=== PATIENT | male | born 1980 | race Two or more races ===

== ENCOUNTER 2021-10-10 22:53 | Inpatient (IN) | payer OTHER ==
[2021-10-10 23:08] VITALS: BMI 26.7
[2021-10-10] MEDS ORDERED: BISMUTH SUBSALICYLATE 524 MG/30 ML PO PRN (23:25)
[2021-10-10] MEDS ORDERED: MAG HYDROX/AL HYDROX/SIMETH 30 ML UNIT-DOSE CUP PO PRN (23:25)
[2021-10-10] MEDS ORDERED: guaiFENesin 200 MG/10 ML 10 ML UNIT-DOSE CUPS PO PRN (23:25)
[2021-10-10] MEDS ORDERED: LOPERAMIDE HCL 2 MG CAPSULE PO PRN (23:25)
[2021-10-10] MEDS ORDERED: NALOXONE HCL 0.4 MG/ML VIAL IM PRN (23:25)
[2021-10-10] MEDS ORDERED: ACETAMINOPHEN 325 MG TABLET (FP) PO PRN ×2 (23:25)
[2021-10-10] MEDS ORDERED: P-EPHED 60MG/TRIPROLIDI 2.5MG TABLET PO PRN (23:25)
[2021-10-10] MEDS ORDERED: METHOCARBAMOL 500 MG TABLET PO PRN (23:25)
[2021-10-10] MEDS ORDERED: cloNIDine HCL 0.1 MG TABLET PO PRN (23:25)
[2021-10-10] MEDS ORDERED: MAGNESIUM CITRATE 300 ML BOTTLE PO PRN (23:25)
[2021-10-10] MEDS ORDERED: methaDONE HCL 10 MG TABLET (FOR DETOX USE ONLY) PO ONE (23:25)
[2021-10-10] MEDS ORDERED: MENTHOL/PHENOL 1 EACH UD MM PRN (23:25)
[2021-10-10] MEDS ORDERED: DICYCLOMINE HCL 10 MG CAPSULE PO PRN (23:25)
[2021-10-10] MEDS ORDERED: MAGNESIUM HYDROX 2400MG/30ML ORAL SUSPENSION 30 ML CUP PO PRN (23:25)
[2021-10-10] MEDS ORDERED: IBUPROFEN 400 MG TABLET (FP) PO PRN (23:25)
[2021-10-10] MEDS ORDERED: PROCHLORPERAZINE MALEATE 5 MG TABLET PO PRN (23:25)
[2021-10-11] MEDS ORDERED: methaDONE HCL 10 MG TABLET (FOR DETOX USE ONLY) PO ONE (10:00)
[2021-10-11] MEDS: PRENATAL VITAMINS W/ FOLIC ACID TABLET (FP) PO SCH (10:23)
[2021-10-11 14:43] LABS: HEMATOCRIT 40.6 % (35.4-49); HEMOGLOBIN 13.1 GM/dL (11.7-16.9); MCH 27.4 pg (25.7-33.7); MCHC 32.4 g/dl (32.0-35.9); MEAN CELL VOLUME 84.6 fl (80-96); MEAN PLT VOLUME 8.8 fl (7.5-11.1); PLATELET COUNT 206 10^3/uL (134-434); RDW 15.7 % (11.9-15.9); WHITE BLOOD COUNT 6.8 K/mm3 (4.0-10.0)
[2021-10-11 15:00] LABS: ALBUMIN 3.2 g/dl (3.4-5.0); BLOOD UREA NITROGEN 13.4 mg/dL (7-18); CALCIUM 8.8 mg/dL (8.5-10.1)
[2021-10-11 15:03] LABS: CREATININE 0.9 mg/dL (0.55-1.3)
[2021-10-11 15:04] LABS: BILIRUBIN,TOTAL 0.6 mg/dL (0.2-1)
[2021-10-11 15:05] LABS: TOT PROT 6.4 g/dl (6.4-8.2)
[2021-10-11] MEDS: ONDANSETRON *ODT* 4 MG TABLET SL ONE (21:01)
[2021-10-11] MEDS: clonazePAM 0.5 MG ODT TABLETS SL PRN (21:29)
[2021-10-11] MEDS: THIAMINE HCL 100 MG TABLET (FP) PO SCH (21:29)
[2021-10-11] MEDS: MELATONIN 5 MG TABLETS PO SCH (21:29)
[2021-10-12] MEDS ORDERED: methaDONE HCL 10 MG TABLET (FOR DETOX USE ONLY) PO ONE (10:00)
[2021-10-12] MEDS ORDERED: ONDANSETRON *ODT* 4 MG TABLET SL ONE (10:26)
[2021-10-12] MEDS ORDERED: TRIMETHOBENZAMIDE HCL 200MG/2ML INJ IM ONE (10:26)
[2021-10-12] MEDS ORDERED: DICYCLOMINE HCL 10 MG CAPSULE PO ONE (10:27)
[2021-10-12] MEDS: PRENATAL VITAMINS W/ FOLIC ACID TABLET (FP) PO SCH (11:50)
[2021-10-12] MEDS ORDERED: SUCRALFATE 1 GM TABLET (FP) PO ONE (14:00)
[2021-10-12 16:09] LABS: SARS-CoV-2 NAA Not Detected (Not Detected)
[2021-10-12] MEDS: MELATONIN 5 MG TABLETS PO SCH (22:11)
[2021-10-12] MEDS: THIAMINE HCL 100 MG TABLET (FP) PO SCH (22:11)
[2021-10-12] MEDS: clonazePAM 0.5 MG ODT TABLETS SL PRN (22:11)
[2021-10-13] MEDS ORDERED: methaDONE HCL 10 MG TABLET (FOR DETOX USE ONLY) ONE (09:37)
[2021-10-13 09:39] VITALS: BP 126/94; PULSE 77; TEMP 97.8
[2021-10-13] MEDS: PRENATAL VITAMINS W/ FOLIC ACID TABLET (FP) PO SCH (10:12)
[2021-10-13] MEDS ORDERED: NALOXONE (NARCAN) HCL 4 MG/0.1 ML SPRAY NS ONE (13:07)
[2021-10-14] MEDS ORDERED: methaDONE HCL 10 MG TABLET (FOR DETOX USE ONLY) PO ONE (10:00)
== END 2021-10-13 13:00 | disposition left against medical advice (07) | DRG 770 ==
LOC: YASAS 22:53 → Y6N 23:37
PROVIDERS: ADMIT Allergy & Immunology; ATTEND Allergy & Immunology
PROC: HZ2ZZZZ Detoxification Services for Substance Abuse Treatment (ICD-10-PCS; principal; 2021-10-10)
DX: F11.23 Opioid dependence with withdrawal (principal); F19.24 Other psychoactive substance dependence with psychoactive substance-induced mood disorder; Z59.00 Homelessness unspecified
CPT/HCPCS: 36415; 80053; 85027; 86780; 93005; 93010; C9803-CS; J0735; Q0162; U0003; U0005

== ENCOUNTER 2022-01-17 12:41 | Inpatient (IN) | payer OTHER ==
[2022-01-17 14:44] VITALS: BMI 25.8
[2022-01-17] MEDS ORDERED: MAGNESIUM CITRATE 300 ML BOTTLE PO PRN (16:00)
[2022-01-17] MEDS ORDERED: LOPERAMIDE HCL 2 MG CAPSULE PO PRN (16:00)
[2022-01-17] MEDS ORDERED: BENZOCAINE/MENTHOL (CHLORASEPTIC ) LOZENGE MM PRN (16:00)
[2022-01-17] MEDS ORDERED: BISMUTH SUBSALICYLATE 524 MG/30 ML PO PRN (16:00)
[2022-01-17] MEDS ORDERED: IBUPROFEN 600 MG TABLET (FP) PO PRN (16:00)
[2022-01-17] MEDS ORDERED: MAGNESIUM HYDROX 2400MG/30ML ORAL SUSPENSION 30 ML CUP PO PRN (16:00)
[2022-01-17] MEDS ORDERED: IBUPROFEN 400 MG TABLET (FP) PO PRN (16:00)
[2022-01-17] MEDS ORDERED: ACETAMINOPHEN 325 MG TABLET (FP) PO PRN ×2 (16:00)
[2022-01-17] MEDS ORDERED: MAG HYDROX/AL HYDROX/SIMETH 30 ML UNIT-DOSE CUP PO PRN (16:00)
[2022-01-17] MEDS ORDERED: DICYCLOMINE HCL 10 MG CAPSULE PO PRN (16:00)
[2022-01-17] MEDS ORDERED: methaDONE HCL 10 MG TABLET (FOR DETOX USE ONLY) PO ONE (17:00)
[2022-01-17] MEDS: hydrOXYzine PAMOATE 25 MG CAPSULE (FP) PO SCH ×2 (18:08→22:48)
[2022-01-17] MEDS: METHOCARBAMOL 500 MG TABLET PO PRN (18:08)
[2022-01-17] MEDS: MELATONIN 5 MG TABLETS PO SCH (22:48)
[2022-01-17] MEDS: THIAMINE HCL 100 MG TABLET (FP) PO SCH (22:48)
[2022-01-18] MEDS: cloNIDine HCL 0.1 MG TABLET PO PRN (06:19)
[2022-01-18] MEDS: hydrOXYzine PAMOATE 25 MG CAPSULE (FP) PO SCH ×5 (06:19→23:55)
[2022-01-18] MEDS: METHOCARBAMOL 500 MG TABLET PO PRN (06:19)
[2022-01-18] MEDS ORDERED: methaDONE HCL 10 MG TABLET (FOR DETOX USE ONLY) ONE (08:05)
[2022-01-18] MEDS ORDERED: TRIMETHOBENZAMIDE HCL 200MG/2ML INJ IM ONE (10:48)
[2022-01-18] MEDS: PRENATAL VITAMINS W/ FOLIC ACID TABLET (FP) PO SCH (11:18)
[2022-01-18 11:36] LABS: HEMATOCRIT 43.1 % (35.4-49); HEMOGLOBIN 14.1 GM/dL (11.7-16.9); MCH 27.3 pg (25.7-33.7); MCHC 32.7 g/dl (32.0-35.9); MEAN CELL VOLUME 83.5 fl (80-96); MEAN PLT VOLUME 8.7 fl (7.5-11.1); PLATELET COUNT 232 10^3/uL (134-434); RBC 5.16 M/mm3 (4.00-5.60); RDW 15.7 % (11.9-15.9); WHITE BLOOD COUNT 5.9 K/mm3 (4.0-10.0)
[2022-01-18 12:50] LABS: BLOOD UREA NITROGEN 15.4 mg/dL (7-18); CALCIUM 9.4 mg/dL (8.5-10.1)
[2022-01-18 12:53] LABS: CREATININE 0.8 mg/dL (0.55-1.3)
[2022-01-18 12:55] LABS: BILIRUBIN,TOTAL 0.4 mg/dL (0.2-1); TOT PROT 7.5 g/dl (6.4-8.2)
[2022-01-18] MEDS: MELATONIN 5 MG TABLETS PO SCH (23:55)
[2022-01-18] MEDS: THIAMINE HCL 100 MG TABLET (FP) PO SCH (23:55)
[2022-01-19] MEDS ORDERED: TRIMETHOBENZAMIDE HCL 200MG/2ML INJ IM ONE (01:15)
[2022-01-19] MEDS: ONDANSETRON *ODT* 4 MG TABLET SL PRN ×3 (01:19→14:57)
[2022-01-19] MEDS: cloNIDine HCL 0.1 MG TABLET PO PRN (01:19)
[2022-01-19] MEDS: hydrOXYzine PAMOATE 25 MG CAPSULE (FP) PO SCH ×5 (07:46→23:02)
[2022-01-19] MEDS ORDERED: methaDONE HCL 10 MG TABLET (FOR DETOX USE ONLY) PO ONE (10:00)
[2022-01-19] MEDS: PRENATAL VITAMINS W/ FOLIC ACID TABLET (FP) PO SCH (12:05)
[2022-01-19] MEDS ORDERED: TRIMETHOBENZAMIDE HCL 200MG/2ML INJ IM PRN (12:16)
[2022-01-19] MEDS: THIAMINE HCL 100 MG TABLET (FP) PO SCH (23:02)
[2022-01-19] MEDS: MELATONIN 5 MG TABLETS PO SCH (23:02)
[2022-01-20] MEDS: hydrOXYzine PAMOATE 25 MG CAPSULE (FP) PO SCH (06:36)
[2022-01-20] MEDS: ONDANSETRON *ODT* 4 MG TABLET SL PRN (08:00)
[2022-01-20 09:09] VITALS: BP 119/68; PULSE 97; TEMP 96.7
[2022-01-21] MEDS ORDERED: methaDONE HCL 10 MG TABLET (FOR DETOX USE ONLY) PO ONE (10:00)
== END 2022-01-20 08:58 | disposition left against medical advice (07) | DRG 770 ==
LOC: YASAS 12:41 → Y3N 16:01
PROVIDERS: ADMIT Allergy & Immunology; ATTEND Surgery
PROC: HZ2ZZZZ Detoxification Services for Substance Abuse Treatment (ICD-10-PCS; principal; 2022-01-17)
DX: F11.23 Opioid dependence with withdrawal (principal); F14.20 Cocaine dependence, uncomplicated; F12.20 Cannabis dependence, uncomplicated; F19.24 Other psychoactive substance dependence with psychoactive substance-induced mood disorder
CPT/HCPCS: 36415; 80053; 85027; 86780; 87811; C9803-CS; J0735; Q0162; U0003; U0005

== ENCOUNTER 2024-01-13 17:25 | Inpatient (IN) | payer OTHER ==
[2024-01-13 18:34] VITALS: BMI 32.3
[2024-01-13] MEDS ORDERED: IBUPROFEN 600 MG TABLET (FP) PO PRN (23:32)
[2024-01-13] MEDS ORDERED: DICYCLOMINE HCL 10 MG CAPSULE PO PRN (23:32)
[2024-01-13] MEDS ORDERED: BENZONATATE 200 MG CAPSULE PO PRN (23:32)
[2024-01-13] MEDS ORDERED: NALOXONE HCL 0.4 MG/ML VIAL IM PRN (23:32)
[2024-01-13] MEDS ORDERED: MAGNESIUM HYDROX 2400MG/30ML ORAL SUSPENSION 30 ML CUP PO PRN (23:32)
[2024-01-13] MEDS ORDERED: POLYETHYLENE GLYCOL (HEALTHYLAX) 3350 17 GM PACKET PO PRN (23:32)
[2024-01-13] MEDS ORDERED: LOPERAMIDE HCL 2 MG CAPSULE PO PRN (23:32)
[2024-01-13] MEDS ORDERED: IBUPROFEN 400 MG TABLET (FP) PO PRN (23:32)
[2024-01-13] MEDS ORDERED: ACETAMINOPHEN 325 MG TABLET (FP) PO PRN (23:32)
[2024-01-13] MEDS ORDERED: BENZOCAINE/MENTHOL (CHLORASEPTIC ) LOZENGE MM PRN (23:32)
[2024-01-13] MEDS ORDERED: NALOXONE (NARCAN) HCL 4 MG/0.1 ML SPRAY NS PRN (23:32)
[2024-01-13] MEDS ORDERED: hydrOXYzine PAMOATE 25 MG CAPSULE (FP) PO PRN (23:32)
[2024-01-13] MEDS ORDERED: guaiFENesin 600 MG TABLET.ER (FP) PO PRN (23:32)
[2024-01-13] MEDS ORDERED: BISMUTH SUBSALICYLATE 524 MG/30 ML PO PRN (23:32)
[2024-01-13] MEDS ORDERED: METHOCARBAMOL 500 MG TABLET PO PRN (23:32)
[2024-01-14] MEDS: methaDONE HCL 10 MG TABLET (FOR DETOX USE ONLY) PO ONE (00:35)
[2024-01-14] MEDS: BUPRENORPHINE/NALOXONE 0.5 MG/0.125 MG FILM SL ONE ×2 (00:38→00:47)
[2024-01-14] MEDS: cloNIDine HCL 0.1 MG TABLET PO SCH (06:35)
[2024-01-14] MEDS: PRENATAL VITAMINS W/ FOLIC ACID TABLET (FP) PO SCH (09:36)
[2024-01-14] MEDS: BUPRENORPHINE/NALOXONE 0.5 MG/0.125 MG FILM SL SCH (09:36)
[2024-01-14 11:21] LABS: HEMATOCRIT 38.4 % (35.4-49); HEMOGLOBIN 12.9 GM/dL (11.7-16.9); MCH 27.3 pg (25.7-33.7); MCHC 33.6 g/dl (32.0-35.9); MEAN CELL VOLUME 81.2 fl (80-96); MEAN PLT VOLUME 8.5 fl (7.5-11.1); PLATELET COUNT 205 10^3/uL (134-434); RBC 4.73 M/mm3 (4.00-5.60); RDW 16.4 % (11.9-15.9)
[2024-01-14 11:23] LABS: CHLORIDE 105 mmol/L (98-107); POTASSIUM 4.4 mmol/L (3.5-5.1); SODIUM 137 mmol/L (136-145)
[2024-01-14 11:28] LABS: GLUCOSE,RANDOM 125 mg/dL (74-106)
[2024-01-14 11:29] LABS: ALBUMIN 3.3 g/dl (3.4-5.0); ANION GAP 4 mmol/L (4-13); BLOOD UREA NITROGEN 11.3 mg/dL (7-18); CO2 28 mmol/L (21-32)
[2024-01-14 11:30] LABS: CREATININE 0.8 mg/dL (0.55-1.3); SGPT/ALT 18 U/L (13-61)
[2024-01-14 11:32] LABS: BILIRUBIN,TOTAL 0.5 mg/dL (0.2-1); SGOT/AST 13 U/L (15-37); TOT PROT 6.9 g/dl (6.4-8.2)
[2024-01-14 11:33] LABS: ALK PHOS 120 U/L (45-117)
[2024-01-14] MEDS: ONDANSETRON *ODT* 4 MG TABLET SL PRN (15:13)
[2024-01-14] MEDS: MAG HYDROX/AL HYDROX/SIMETH 30 ML UNIT-DOSE CUP PO PRN (19:53)
[2024-01-14] MEDS: MELATONIN 5 MG TABLETS PO SCH (21:54)
[2024-01-14] MEDS: THIAMINE 100 MG TABLET PO SCH (21:54)
[2024-01-15] MEDS: methaDONE HCL 10 MG TABLET (FOR DETOX USE ONLY) PO ONE (10:28)
[2024-01-15] MEDS: BUPRENORPHINE/NALOXONE 2 MG/0.5 MG FILM PACKET SL SCH (10:29)
[2024-01-15 12:28] VITALS: TEMP 98.9
[2024-01-15 16:46] VITALS: BP 127/84; PULSE 60; RESP 16
[2024-01-16] MEDS ORDERED: BUPRENORPHINE/NALOXONE 4 MG/1 MG FILM PACKET SL SCH (10:00)
[2024-01-17] MEDS ORDERED: BUPRENORPHINE/NALOXONE 8 MG/2 MG FILM PACKET SL SCH (10:00)
[2024-01-17] MEDS ORDERED: methaDONE HCL 10 MG TABLET (FOR DETOX USE ONLY) PO ONE (10:00)
[2024-01-18] MEDS ORDERED: BUPRENORPHINE/NALOXONE 8 MG/2 MG FILM PACKET SL SCH (10:00)
== END 2024-01-15 17:06 | disposition left against medical advice (07) | DRG 770 ==
LOC: SUATTDRO 17:25 → YASAS 17:25 → Y3N 23:43
PROVIDERS: ADMIT Allergy & Immunology; ATTEND Surgery
PROC: HZ2ZZZZ Detoxification Services for Substance Abuse Treatment (ICD-10-PCS; principal; 2024-01-13)
DX: F11.23 Opioid dependence with withdrawal (principal); F14.10 Cocaine abuse, uncomplicated; F12.10 Cannabis abuse, uncomplicated; F19.24 Other psychoactive substance dependence with psychoactive substance-induced mood disorder; Z72.0 Tobacco use
CPT/HCPCS: 36415; 80053; 80305; 80307; 85027; 86780; Q0162